=== PATIENT | female | born 1980 | race Caucasian/White ===

== ENCOUNTER 2024-04-29 21:22 | Emergency (ER) | payer SELFPAY ==
[~2024-04-29] VITALS: Ht 152.4 cm; Wt 90.7 kg
[2024-04-29 21:33] VITALS: BP_SYST 178; PULSE 98; RESP 18; TEMP 97.4; O2SAT 99
[2024-04-30 01:57] VITALS: BP_SYST 157; PULSE 86; RESP 18; TEMP 97.4; O2SAT 99
== END 2024-04-30 01:56 | disposition home or self-care (01) ==
LOC: SED 21:22
DX: S09.8XXA Other specified injuries of head, initial encounter (principal); R42 Dizziness and giddiness; W22.03XA Walked into furniture, initial encounter; Y93.89 Activity, other specified; Y92.89 Other specified places as the place of occurrence of the external cause; Y99.8 Other external cause status
CPT/HCPCS: 70450-TC; 99284